=== PATIENT | female | born 1990 | race Caucasian/White ===

== ENCOUNTER → 2023-11-11 06:26 | Day surgery (SDC) | payer OTHER, SELFPAY | LOC: GI 06:26 | PROVIDERS: ATTENDING PHYSICIAN Internal Medicine Gastroenterology | DX: K50.90 Crohn's disease, unspecified, without complications (principal) | CPT/HCPCS: 45331; 88305 ==

== ENCOUNTER → 2025-08-28 07:58 | Outpatient (REF) | payer OTHER, SELFPAY | LOC: RAD 07:58 | PROVIDERS: ATTENDING PHYSICIAN Family Medicine | DX: R59.0 Localized enlarged lymph nodes (principal) | CPT/HCPCS: 76536 ==